=== PATIENT | male | born 1955 | race Caucasian/White ===

== ENCOUNTER → 2020-12-11 10:12 | Outpatient (CLI) | payer MEDICARE, SELFPAY ==
[2020-12-11] MEDS: COVID-19 VACC #1, MRNA(MOD) 100 MCG/0.5 ML VIAL IM (10:15)
== END ==
PROVIDERS: Visit Provider Internal Medicine
DX: Z23 Encounter for immunization (principal)
CPT/HCPCS: 0011A; 91301

== ENCOUNTER → 2021-01-08 10:11 | Outpatient (CLI) | payer MEDICARE, SELFPAY ==
[2021-01-08] MEDS: COVID-19 VACC #2, MRNA(MOD) 100 MCG/0.5 ML VIAL IM (10:19)
== END ==
PROVIDERS: Visit Provider Internal Medicine
DX: Z23 Encounter for immunization (principal)
CPT/HCPCS: 0012A; 91301

== ENCOUNTER → 2021-01-28 18:41 | Outpatient (ROUT) | payer OTHER, SELFPAY ==
[2021-01-28 19:26] LABS: Aspartate Aminotransferase 28 IU/L (17-59); BUN Creatinine Ratio 28.8 (6-22); Blood Urea Nitrogen 21 mg/dL (9-20); Carbon Dioxide 30 mmol/L (22-32); Chloride 102 mmol/L (98-107); Cholesterol 193 mg/dL (140-199); Estimated Glomerular Filt Rate > 60.0 mL/min (>60); Glucose 96 mg/dL (80-110); HDL Cholesterol 77 mg/dL (40-60); HEMOLYSIS < 15 (0-50); LDL Cholesterol Calculated 99 mg/dL (<100); Potassium 4.2 mmol/L (3.4-5.1); Sodium 136 mmol/L (137-145); Triglycerides 84 mg/dL (35-150)
[2021-01-28 19:55] LABS: Prostate Specific Antigen 1.25 ng/mL (0.10-4.00)
== END ==
PROVIDERS: Visit Provider Internal Medicine
DX: I10 Essential (primary) hypertension (principal); E78.2 Mixed hyperlipidemia; N40.0 Benign prostatic hyperplasia without lower urinary tract symptoms
CPT/HCPCS: 80048; 80061; 84153; 84450

== ENCOUNTER → 2023-03-26 10:03 | Outpatient (CLI) | payer OTHER, SELFPAY ==
[2023-03-26 11:38] LABS: Add Manual Diff / Slide Review NO; Basophils Absolute Auto 0 /uL (0-100); Basophils Percent Auto 0.7 % (0-2); Eosinophils Absolute Auto 100 /uL (0-450); Eosinophils Percent Auto 0.9 % (2-4); Hemoglobin 14.5 g/dL (13.5-17.5); Lymphocytes Absolute Auto 1600 /uL (1100-4500); Lymphocytes Percent Auto 27.4 % (25-40); Mean Corpuscular HGB Conc 34.6 % (30-36); Mean Corpuscular Hemoglobin 31.4 PG (26-34); Mean Corpuscular Volume 90.8 fL (80-100); Monocytes Absolute Auto 600 /uL (0-900); Monocytes Percent Auto 10.1 % (3-14); Neutrophils Absolute Auto 3600 /uL (1500-7000); Neutrophils Percent Auto 60.9 % (50-75); Platelet Count 248 X10^3/uL (150-400); Red Blood Cell Count 4.62 X10^6/uL (4.5-5.9); Red Cell Distribution Width 12.7 % (11.6-14.8); White Blood Cell Count 5.9 X10^3/uL (4.5-11.0)
[2023-03-26 11:51] LABS: Alanine Aminotransferase 25 IU/L (<50); Albumin 4.1 g/dL (3.5-5.0); Albumin Globulin Ratio 1.3 (1.0-2.8); Alkaline Phosphatase 54 U/L (38-126); Aspartate Aminotransferase 26 IU/L (17-59); Bilirubin Total 0.8 mg/dL (0.2-1.3); Blood Urea Nitrogen 24 mg/dL (9-20); Calcium 8.9 mg/dL (8.4-10.2); Carbon Dioxide 33 mmol/L (22-32); Chloride 104 mmol/L (98-107); Cholesterol 214 mg/dL (140-199); Estimated Glomerular Filt Rate > 60 mL/min (>60); Globulin 3.1 g/dL (1.7-4.1); Glucose 95 mg/dL (80-110); HDL Cholesterol 80 mg/dL (40-60); HEMOLYSIS < 15 (0-50); LDL Cholesterol Calculated 119 mg/dL (<100); Potassium 4.2 mmol/L (3.4-5.1); Sodium 139 mmol/L (137-145); Total Protein 7.2 g/dL (6.3-8.2); Triglycerides 77 mg/dL (35-150)
[2023-03-26 12:05] LABS: Prolactin 30.1 ng/mL (3.7-17.9)
[2023-03-26 12:19] LABS: Prostate Specific Antigen Scrn 1.31 ng/mL (0.1-4.0)
[2023-03-26 12:33] LABS: TSH w/ Reflex to FT4 0.45 uIU/mL (0.47-4.68)
[2023-03-26 13:23] LABS: Free T4, Direct Thyroxine 1.05 ng/dL (0.78-2.19)
[2023-03-28 09:36] LABS: Calcium 9.2 mg/dL (8.6-10.2); Parathyroid Hormone, Intact 49 pg/mL (15-65)
== END ==
PROVIDERS: PCP Family Medicine; Referring Provider Family Medicine; Visit Provider Family Medicine
DX: D35.2 Benign neoplasm of pituitary gland (principal); E21.3 Hyperparathyroidism, unspecified; Z12.5 Encounter for screening for malignant neoplasm of prostate; M85.80 Other specified disorders of bone density and structure, unspecified site; Z00.00 Encounter for general adult medical examination without abnormal findings
CPT/HCPCS: 36415; 80053; 80061; 82310; 83970; 84146; 84439; 84443; 85025; G0103

== ENCOUNTER → 2023-04-10 09:19 | Outpatient (CLI) | payer OTHER, SELFPAY ==
[2023-04-10 11:30] LABS: Free T4, Direct Thyroxine 0.96 ng/dL (0.78-2.19)
[2023-04-10 11:31] LABS: Prolactin 30.7 ng/mL (3.7-17.9)
[2023-04-10 11:44] LABS: Thyroid Stimulating Hormone 0.511 uIU/mL (0.47-4.68)
[2023-04-13 05:20] LABS: Calcium 8.9 mg/dL (8.6-10.2); Parathyroid Hormone, Intact 49 pg/mL (15-65)
== END ==
PROVIDERS: PCP Family Medicine; Referring Provider Family Medicine; Visit Provider Family Medicine
DX: E21.3 Hyperparathyroidism, unspecified (principal); R79.89 Other specified abnormal findings of blood chemistry
CPT/HCPCS: 36415; 82310; 83970; 84146; 84439; 84443

== ENCOUNTER → 2023-04-21 11:07 | Outpatient (CLI) | payer OTHER, SELFPAY ==
--- NOTE | 2023-04-21 11:08 | DI.MRI.S_ITS ---
PROCEDURE: MR BRAIN (PITUITARY) WWO CON INDICATIONS: Elevated prolactin level, history of prolactinoma TECHNIQUE: Noncontrast sagittal and axial FLAIR, axial gradient echo, axial diffusion and ADC through the brain. Thin-slice sagittal and coronal T1 spin echo, coronal T2 fast spin echo through the pituitary. After the administration contrast, optional dynamic coronal T1 spin echo, thin-slice coronal and sagittal T1 spin echo images through the pituitary fossa; axial and coronal and sagittal T1 spin echo with fat saturation through the brain. COMPARISON: No prior exams available FINDINGS: Image quality: Excellent. Pituitary Gland: Noncontrast pituitary is appropriate in size and signal characteristics. Normal posterior pituitary bright spot present. After contrast administration, the pituitary shows appropriate enhancement without convincing evidence of nodular defect CSF Spaces: Ventricles are normal in size and shape. Basal cisterns are patent. No extra-axial fluid collections. Brain: No intracranial bleeds or mass effects. No abnormal intracranial enhancement. Rodriguez-white matter interface is intact. Diffusion weighted images demonstrate no acute ischemic insults. Brainstem is normal. Normal intravascular flow voids are present. Skull and face: Complete left maxillary sinus opacification. Sinuses: Sinuses and mastoids are clear. IMPRESSION: 1. Unremarkable MRI of the brain and pituitary gland without MR findings suggest pituitary adenoma 2. Left maxillary mucosal sinus disease Approved by: J Carlos Lyle M.D. on 04/21/2023 at 15:39
== END ==
PROVIDERS: PCP Family Medicine; Referring Provider Family Medicine; Visit Provider Family Medicine
DX: E21.3 Hyperparathyroidism, unspecified (principal); J32.0 Chronic maxillary sinusitis; D35.2 Benign neoplasm of pituitary gland; R79.89 Other specified abnormal findings of blood chemistry
CPT/HCPCS: 70553; A9579

== ENCOUNTER → 2023-10-01 10:26 | Outpatient (CLI) | payer OTHER, SELFPAY ==
--- NOTE | 2023-10-01 10:28 | DI.RAD.S_ITS ---
Bone Density Report Name: ADRIAN PAPPAS Age: 67 Sex: Male Ethnicity: White Date of : 1955 Indication: Other specified disorders of bone density. Referring Provider: KELVIN LEON Study: Bone densitometry was performed. Exam Date: October 01, 2023 Accession number: [id number] Bone Density: Region BMD T-score Z-score Classification AP Spine(L1-L4) 1.143 0.9 1.3 Normal Femoral Neck (Left) 0.640 -1.9 -1.0 Osteopenia Total Hip (Left) 0.859 -0.7 -0.5 Normal Femoral Neck (Right) 0.607 -2.2 -1.2 Osteopenia Total Hip (Right) 0.876 -0.5 -0.4 Normal Total Hip Mean 0.868 -0.6 -0.5 Normal World Health Organization criteria for BMD impression classify patients as: Normal (T-score at or above -1.0), Osteopenia (T-score between -1.0 and -2.5), or Osteoporosis (T-score at or below -2.5). 10-year Fracture Risk: FRAX not reported because: Treated for osteoporosis Impression: The patient has low bone mass, based on the Right Femoral Neck T-score. Discussion: It is important to ask patients whether they are taking their medications and to encourage continued and appropriate compliance with their osteoporosis therapies to reduce fracture risk. It is also important to review their risk factors and encourage appropriate calcium and vitamin D intakes, exercise, fall prevention and other lifestyle measures. Follow-Up: Consider repeating this study in 2 years to reassess this patient's status, or sooner if there is some new clinical indication. Reported by: JAYMIE CHIRINOS M.D. on 10/01/2023 11:20:00 AM.
== END ==
PROVIDERS: PCP Family Medicine; Referring Provider Family Medicine; Visit Provider Family Medicine
DX: M85.89 Other specified disorders of bone density and structure, multiple sites (principal); R79.89 Other specified abnormal findings of blood chemistry; D35.2 Benign neoplasm of pituitary gland; E21.3 Hyperparathyroidism, unspecified
CPT/HCPCS: 77080

== ENCOUNTER → 2024-06-10 10:51 | Outpatient (CLI) | payer OTHER, SELFPAY ==
[2024-06-10 11:47] LABS: Add Manual Diff / Slide Review NO; Basophils Absolute Auto 0 /uL (0-100); Basophils Percent Auto 1.1 % (0-2); Eosinophils Absolute Auto 100 /uL (0-450); Eosinophils Percent Auto 1.3 % (2-4); Hematocrit 41.9 % (41-53); Hemoglobin 14.5 g/dL (13.5-17.5); Lymphocytes Absolute Auto 1600 /uL (1100-4500); Lymphocytes Percent Auto 38.3 % (25-40); Mean Corpuscular HGB Conc 34.5 % (30-36); Mean Corpuscular Volume 92.7 fL (80-100); Monocytes Absolute Auto 600 /uL (0-900); Monocytes Percent Auto 13.5 % (3-14); Neutrophils Absolute Auto 1900 /uL (1500-7000); Neutrophils Percent Auto 45.8 % (50-75); Platelet Count 247 X10^3/uL (150-400); Red Blood Cell Count 4.52 X10^6/uL (4.5-5.9); Red Cell Distribution Width 13.2 % (11.6-14.8); White Blood Cell Count 4.2 X10^3/uL (4.5-11.0)
[2024-06-10 12:21] LABS: Cholesterol 207 mg/dL (140-199); HDL Cholesterol 82 mg/dL (40-60); LDL Cholesterol Calculated 111 mg/dL (<100); Triglycerides 69 mg/dL (35-150)
[2024-06-10 12:38] LABS: Prolactin 25.3 ng/mL (3.7-17.9)
[2024-06-11 08:40] LABS: Calcium 9.8 mg/dL (8.6-10.2); Parathyroid Hormone, Intact 21 pg/mL (15-65)
== END ==
PROVIDERS: PCP Family Medicine; Referring Provider Family Medicine; Visit Provider Family Medicine
DX: Z00.00 Encounter for general adult medical examination without abnormal findings (principal); E21.3 Hyperparathyroidism, unspecified; R79.89 Other specified abnormal findings of blood chemistry; Z12.5 Encounter for screening for malignant neoplasm of prostate; D35.2 Benign neoplasm of pituitary gland
CPT/HCPCS: 36415; 80061; 82310; 83970; 84146; 85025; G0103

== ENCOUNTER → 2025-10-03 09:37 | Outpatient (CLI) | payer OTHER, SELFPAY ==
--- OUTSIDE RECORDS SUMMARY | 2025-10-02 08:52 | XMS_ITS | Encounter Summary ---
Author Organization [facility] Address [address] [place] [address] Care Team Providers Care Production Line Technician Name Role Phone Star Cervantes DO Primary Care Provider [phone] Reason for Referral * Diagnostic Imaging (Routine) - Closed Specialty Diagnoses / Procedures Referred By Kathy espinoza Referred To Contact Radiology Diagnoses Right shoulder pain, unspecified chronicity Procedures XR SHOULDER 2+ VIEWS RIGHT Ortiz Edmonds MD [address] [address] Phone: tel: fax: Referral ID Status Reason Start Date Expiration Date V isits Requested Visits Authorized [id number] Closed Specialty Services Required 09/26/2025 09/21/2026 1 1 Reason for Visit * Diagnostic Imaging (Routine) - Closed Specialty Diagnoses / Procedures Referred By Kathy espinoza Referred To Contact Radiology Diagnoses Right shoulder pain, unspecified chronicity Procedures XR SHOULDER 2+ VIEWS RIGHT Ortiz Edmonds MD [address] [address] Phone: tel: fax: Referral ID Status Reason Start Date Expiration Date V isits Requested Visits Authorized [id number] Closed Specialty Services Required 09/26/2025 09/21/2026 1 1 Encounter Details Date Type Department Care Team (Latest Contact Info) Description 10/02/2025 8:52 AM PST - 10/02/2025 11:59 PM PST Hospital Encounter [facility] Diagnostic Imaging [address] [phone] Ortiz Edmonds MD [address] [phone] Right shoulder pain, unspecified chronicity Discharge Disposition: Home/Self Care Social History Tobacco Use Types Packs/Day Years Used Date Smoking Tobacco: Never Smokeless Tobacco: Never Comments:never used Alcohol Use Standard Drinks/Week Comments Yes 1 (1 standard drink = 0.6 oz pur e alcohol) Sex and Gender Information Value Date Recorded Sex Assigned at Not on file Legal Sex Male 3:53 PM PDT Gender Identity Not on file Sexual Orientation Not on file documented as of this encounter Medications at Time of Discharge calcium carbonate (CALCIUM 500 ORAL) Take by mouth cholecalciferol, vitamin D3, 75 mcg (3,000 unit) tablet Take by mouth naproxen (NAPROSYN) 250 mg tablet Take 1 tablet (250 mg total) by mouth sildenafiL (VIAGRA) 100 mg tablet Take 0.5-1 tablets (50-100 mg total) by mouth documented as of this encounter Plan of Treatment Not on file documented as of this encounter Procedures Procedure Name Priority Date/Time Associated Diagnosis Comments XR SHOULDER 2+ VIEWS RIGHT Routine 10/02/2025 9:07 AM [facility] Right shoulder pain, unspecified chronicity documented in this encounter Results * XR SHOULDER 2+ VIEWS RIGHT (10/02/2025 9:07 AM PST) Anatomical Region Laterality Modality Upper Extremities, Shoulder Right Radi ographic Imaging 10/02/2025 12:0 1 PM PST Narrative 10/02/2025 8:41 [place]. [address] PATIENT NAME: IGOR PAPPAS : 1955 GENDER: Keaton EXAM DATE: 10/02/2025 8:59 ORDERED FROM: [facility] [place] ORDERING PHYSICIAN: ORTIZ EDMONDS CC: -- - - - CONTRAST: READING STATION ID: [id number] mGy: PROCEDURE: XR SHOULDER 2+ VIEWS RIGHT INDICATIONS: pain TECHNIQUE: 3 views of the shoulder were acquired. COMPARISON: [facility] [place], CR, XR SHOULDER 2+ VIEWS LEFT, 11/17/2023, 14:32. FINDINGS: Bones: No fractures or dislocations. No suspicious bony lesions. Visualized ribs appear intact. Moderate acromioclavicular and mild glenohumeral joint space narrowing with periarticular osteophyte formation. Soft tissues: No suspicious soft tissue calcifications. The visualized lung is within normal limits. IMPRESSION: No acute bony abnormality. Moderate acromioclavicular mild glenohumeral joint degeneration. Reviewed by: Jeyson Lino [facility] Interpreted: Ellen Valentin MD on 10/02/2025 at 11:54 Transcribed by: JAYCEE on 10/02/2025 at 12:05 Approved by: Ellen Valentin M.D. on 10/02/2025 at 20:41 Procedure Note Ellen Valentin MD - 10/02/2025 [place]. [address] PATIENT NAME: IGOR PAPPAS : 1955 GENDER: Keaton EXAM DATE: 10/02/2025 8:59 [place] [facility] ORDERING PHYSICIAN: ORTIZ EDMONDS CC: -- - - - CONTRAST: READING STATION ID: [id number] mGy: PROCEDURE: XR SHOULDER 2+ VIEWS RIGHT INDICATIONS: pain TECHNIQUE: 3 views of the shoulder were acquired. COMPARISON: [facility] [place], CR, XR SHOULDER 2+VIEWS LEFT, 11/17/2023, 14:32. FINDINGS: Bones: No fractures or dislocations. No suspicious bony lesions.Visualized ribs appear intact. Moderate acromioclavicular and mildglenohumeral joint space narrowing with periarticular osteophyteformation. Soft tissues: No suspicious soft tissue calcifications. The visualizedlung is within normal limits. IMPRESSION: No acute bony abnormality. Moderate acromioclavicular mild glenohumeral joint degeneration. Reviewed by: Jeyson Lino RR Interpreted: Ellen Valentin MD on 10/02/2025t 11:54 Transcribed by: JAYCEE on 10/02/2025 at 12:05 Approved by: Ellen Valentin M.D. on 10/02/2025 at 20:41 Ortiz Edmonds MD [facility] XR PROCEDURES Final Result documented in this encounter Visit Diagnoses Diagnosis Right shoulder pain, unspecified chronicity documented in this encounter Care Teams Production Line Technician Relationship Specialty Start Date End Date Star Cervantes DO [address] [place] [address], [address] [place] [address] PCP - General Patient Appointment Coordinator 09/03/25 documented as of this encounter
--- OUTSIDE RECORDS SUMMARY | 2025-10-02 09:30 | XMS_ITS | Encounter Summary ---
Author Organization [facility] Address [address] [place] [address] Care Team Providers Care Service Aide Name Role Phone Star Cervantes DO Primary Care Provider [phone] Reason for Referral * MRI/CAT/PET Scan (Routine) - Pending Review Specialty Diagnoses / Procedures Referred By Kathy t Referred To Contact Radiology Diagnoses Right shoulder pain, unspecified chronicity Procedures MR SHOULDER RIGHT WITHOUT CONTRAST Ortiz Edmonds MD [address] [place] [phone] Phone: tel: fax: Referral ID Status Reason Start Date Expiration Date Visits Requested Visits Authorized [id number] Pending Review Specialty Services Required 5 09/27/2026 1 1 * Physical Therapy (Routine) - Authorized Specialty Diagnoses / Procedures Referred By Kathy espinoza Referred To Contact Physical Therapy Diagnoses Right shoulder pain, unspecified chronicity Ortiz Edmonds MD [address] [place] [phone] Phone: tel: fax: [facility] [address] [place] [phone] Phone: tel: fax: Referral ID Status Reason Start Date Expiration Date Visits Requested Visits Authorized [id number] Authorized Specialty Services Required 5 01/03/2026 36 9 Scheduling Instructions Begin physical therapy as ordered for range of motion, strengthening, and stabilization * Diagnostic Imaging (Routine) - Closed Specialty Diagnoses / Procedures Referred By Kathy espinoza Referred To Contact Radiology Diagnoses Right shoulder pain, unspecified chronicity Procedures XR SHOULDER 2+ VIEWS RIGHT Ortiz Edmonds MD [address] [place] [phone] Phone: tel: fax: Referral ID Status Reason Start Date Expiration Date V isits Requested Visits Authorized [id number] Closed Specialty Services Required 09/26/2025 09/21/2026 1 1 Reason for Visit * Reason Comments Pain Encounter Details Date Type Department Care Team (Late st Contact Info) Description 10/02/2025 9:30 AM PST Office Visit [facility] [address] [phone] Ortiz Edmonds MD [address] [place] [phone] Right shoulder pain, unspecified chronicity (Primary Dx) Social History Tobacco Use Types Packs/Day Years [...] on file documented as of this encounter Progress Notes * Juan Mcdonald MA - 10/02/2025 9:30 AM PST ou have an injury to the Right shoulder impingement syndrome, acromioclavicular joint arthritis, r/o partial versus full thickness rotator cuff tear. We have discussed surgical versus nonsurgical treatment options. At this time, you will take anti-inflammatories for pain, and modify activities as instructed. You may use ice and/or heat as needed for comfort. Please refrain from any overhead activities including any vigorous pushing and/or pulling movements. Please keep your elbow close to your body when performing activities with your arm. Begin physical therapy as ordered for range of motion, strengthening, and stabilization. MRI without contrast of the right shoulder has been ordered. Return to clinic after MRI for further evaluationand discussion. Please feel free to call with any further questions, comments, and/or concerns. We have ordered a diagnostic study (such as an MRI, CT or Ultrasound) to further evaluate you and your symptoms. [facility] Diagnostic Department will call you once this is authorized with your insurance to get you scheduled. If you have questions about the authorization of your study, you can reach out to our Comic Artist at [phone]. Once you get your appointment for the MRI/CT or Ultrasound, please call our office [phone] to make a follow up appointment to review these results. We will work our best to get you scheduled in timely manner to review the imaging. * Ortiz Edmonds MD - 10/02/2025 9:30 AM PST Subjective Patient ID: Igor Pappas is a 69 y.o. male that presents today for had concerns including Pain of the Right Shoulder.. Referred by: Star Cervantes DO Igor Pappas is a 69 y.o. year old male right hand dominant patient who presents to our office for orthopedic evaluation of their ongoing symptoms of the right shoulder. The patient states that their pain is a sharp in nature and mild/moderate in severity localized to the lateral aspect of the shoulder without radiation. This has been progressing over the past year. Recently went fly fishing the last couple of months which exacerbated it. Moreover, the pain is exacerbated by activities, especially with overhead activities. Rest seems to improve the symptoms . Patient reports no popping/clicking/grinding, no stiffness, some weakness, no swelling, no numbness, no tingling, does wake the patient up at night. Previous treatment has included: months of hep/ physical therapy, no injections.Work/hobbies/sports include: goes fly fishing, assistant research scientist environmental- retired Past Medical History: Diagnosis Date Bunion 2010 Cataract 2016 Dizziness 11/22/2022 Dupuytren's contracture 2022 Hyperparathyroidism surgery 2017, now osteopenia Hypopituitarism elevated prolactin, 2017 Osteoporosis 2016 Tear of meniscus of knee 2016 Past Surgical History: Procedure Laterality Date COLONOSCOPY 2015 EYE SURGERY cataract 2016 FOOT SURGERY 2009 PARATHYROID GLAND SURGERY 2016 OR COLONOSCOPY W/BIOPSY SINGLE/MULTIPLE N/A 09/03/2025 Procedure: COLONOSCOPY; Surgeon: Prasad Toribio MD; Location: [facility]; Service: Gastroenterology OR COLSC FLX W/RMVL OF TUMOR POLYP LESION SNARE TQ N/A 09/03/2025 Procedure: FLEXIBLE COLONOSCOPY PROXIMAL TO SPLENIC FLEXURE WITH REMOVAL OF TUMOR USING SNARE; Surgeon: Prasad Toribio MD; Location: [facility]; Service: Gastroenterology Family History Problem Relation Age of Onset Hypertension Father Social History Socioeconomic History Marital status: Tobacco Use Smoking status: Never Smokeless tobacco: Never Tobacco comments: never used Vaping Use Vaping status: Never Used Substance and Sexual Activity Alcohol use: Yes Alcohol/week: 1.0 standard drink of alcohol Types: 1 Glasses of wine per week Drug use: Never Sexual activity: Yes Partners: Female control/protection: Pill No Known Allergies Current Medication List Sig calcium carbonate (CALCIUM 500 ORAL) Take by mouth cholecalciferol, vitamin D3, 75 mcg (3,000 unit) tablet Take by mouth naproxen (NAPROSYN) 250 mg tablet Take 1 tablet (250 mg total) by mouth sildenafiL (VIAGRA) 100 mg tablet Take 0.5-1 tablets (50-100 mg total) by mouth Review of Systems Objective There were no vitals taken for this visit. Physical Exam CONST: WD,WN, NAD, A+OX3 OCULAR: EOMI, no conjunctivitis/icterus ENT: no deformities, scars or lesions CARDIAC: Pulse is regular. No cyanosis,clubbing,edema RESP: regular,unlabored MSK: normal light touch median, ulnar, radial, lateral antebrachial, axillary nerve distribution. Intact AIN, PIN, u, r, ax motor. 2+ r pulse Right SHOULDER - scars, - swelling, - atrophy or asymmetry. TTP anterolateral ROM R/ L Strength/Pain 150/170 FF 4+/5 /+ 130/150 ABD 4+/5 /+ 30/50 ER 5-/5 / + L5/L1 IR 5/5 / - +painful arc, +pain with passive stretch, - pseudoparalysis, - crepitus Signs Neer's: + Hawkin's: + Belly- Off: - O'Briens: + Apprehension: - Suppression: - Jerk: - Drawer: - Sulcus: - Speed's:+ Yergason: + Scapular Winging: - Crossbody Adduction: ++ Patient Active Problem List Diagnosis Hyperprolactinemia Osteoporosis Primary hyperparathyroidism Vitamin D deficiency Dupuytren's contracture Special screening for malignant neoplasms, colon Diagnostics: 4 view xray of the shoulder demonstrates no acute fracture or fracture, type 2 b acromion, moderateAC joint arthritis Assessment/Plan Diagnoses and all orders for this visit: Right shoulder pain, unspecified chronicity - XR SHOULDER 2+ VIEWS RIGHT; Future You have an injury to the Right shoulder impingement syndrome, acromioclavicular joint arthritis, r/o partial versus full thickness rotator cuff tear. We have discussed surgical versus nonsurgical treatment options. At this time, you will take anti-inflammatories for pain, and modify activities as instructed. You may use ice and/or heat as needed for comfort. Please refrain from any overhead activities including any vigorous pushing and/or pulling movements. Please keep your elbow close to yourbody when performing activities with your arm. Begin physical therapy as ordered for range of motion, strengthening, and stabilization. MRI without contrast of the right shoulder has been ordered. Return to clinic after MRI for further evaluationand discussion. Please feel free to call with any further questions, comments, and/or concerns. Portions of today's documentation have been created with the assistance of voice recognition software. Therefore, it may contain anomalous punctuation, anomalous independent misrecognitions, word substitutions, insertions or omissions. Occasional wrong-word or sound- alike substitutions may also occur, all due to the inherent limitations of voice recognition software. Attempts to correct the above have been made by Ortiz Edmonds MD, but it is recommended that the chart be read carefully to recognize, using context, where the substitutions may have occurred. Electronically signed by Ortiz Edmonds MD 10/02/2025 9:12 AM documented in this encounter Miscellaneous Notes * Addendum Note - Juan Mcdonald MA - 10/02/2025 9:30 AM PSTAddended by: JUAN MCDONALD on: 10/02/2025 09:28 AM Modules accepted: Orders * Addendum Note - Juan Mcdonald MA - 10/02/2025 9:30 AM PSTAddended by: JUAN MCDONALD on: 10/02/2025 09:34 AM Modules accepted: Orders * Addendum Note - Ortiz Edmonds MD - 10/02/2025 9:30 AM PSTAddended by: ORTIZ EDMONDS on: 10/02/2025 09:35 AM Modules accepted: Orders documented in this encounter Plan of Treatment Scheduled Orders Name Type Priority Associated Diagnoses Orde r Schedule MR SHOULDER RIGHT WITHOUT CONTRAST Imaging Routine Right shoulder pain, unspecified chronicity Expected: 10/02/2025, Expires: 01/02/2027 Scheduled Referrals Name Type Priority Associated Diagnoses Orde r Schedule XTRNL Referral to Physical Therapy Outpatient Referral Routine Right shoulder pain, unspecified chronicity 1 Occurrences starting 10/02/2025 until 10/02/2026 documented as of this encounter Results * XR SHOULDER 2+ VIEWS RIGHT (10/02/2025 9:07 AM PST) Anatomical Region Laterality Modality Upper Extremities, Shoulder Right Radi ographic Imaging 10/02/2025 12:0 1 PM PST Narrative 10/02/2025 8:41 [place]. [address] PATIENT NAME: IGOR PAPPAS : 1955 GENDER: Keaton EXAM DATE: 10/02/2025 8:59 [facility] ORDERING PHYSICIAN: ORTIZ EDMONDS CC: -- - - - CONTRAST: READING STATION ID: [id number] mGy: PROCEDURE: XR SHOULDER 2+ VIEWS RIGHT INDICATIONS: pain TECHNIQUE: 3 views of the shoulder were acquired. COMPARISON: [facility] [place], CR, XR SHOULDER 2+ VIEWS LEFT, 11/17/2023, [...] Lino RR Interpreted: Ellen Valentin MD on 10/02/2025 at 11:54 Transcribed by: JAYCEE on 10/02/2025 at 12:05 Approved by: Ellen Valentin M.D. on 10/02/2025 at 20:41 Procedure Note Ellen Valentin MD - 10/02/2025 [place]. [address] PATIENT NAME: IGOR PAPPAS : 1955 GENDER: Keaton EXAM DATE: 10/02/2025 8:59 ORDERED FROM: [facility] [place] ORDERING PHYSICIAN: ORTIZ EDMONDS CC: -- - - - CONTRAST: READING STATION ID: [id number] mGy: PROCEDURE: XR SHOULDER 2+ VIEWS RIGHT INDICATIONS: pain TECHNIQUE: 3 views of the shoulder were acquired. COMPARISON: [facility] [place], CR, XR SHOULDER 2+VIEWS LEFT, 11/17/2023, 14:32. FINDINGS: Bones: No fractures or dislocations. No suspicious bony lesions.Visualized ribs appear intact. Moderate acromioclavicular and mildglenohumeral joint space narrowing with periarticular osteophyteformation. Soft tissues: No suspicious soft tissue calcifications. The visualizedlung is within normal limits. IMPRESSION: No acute bony abnormality. Moderate acromioclavicular mild glenohumeral joint degeneration. Reviewed by: Jeyson BOYD Interpreted: Ellen Valentin MD on 10/02/2025t 11:54 Transcribed by: JAYCEE on 10/02/2025 at 12:05 Approved by: Ellen Valentin M.D. on 10/02/2025 at 20:41 Ortiz Edmonds MD [facility] XR PROCEDURES Final Result documented in this encounter Visit Diagnoses Diagnosis Right shoulder pain, unspecified chronicity- Primary Right shoulder pain, unspecified chronicity documented in this encounter Care Teams Service Aide Relationship Specialty Start Date End Date Star Cervantes DO [facility] [address] [place] [address], [address] [place] [address] PCP - General Back Maker 09/03/25 documented as of this encounter
--- NOTE | 2025-10-03 09:40 | DI.RAD.S_ITS ---
PROCEDURE: XR DEXA AXIAL SKELETON INDICATIONS: Osteopenia COMPARISON: [facility], , XR DEXA AXIAL SKELETON, 10/01/2023, 11:01. FINDINGS: Lumbar Spine: Bone mineral density 1.140 g/cm2, T score 0.8, compared to 0.9. Left Femoral Neck: Bone mineral density 0.616 g/cm2, T score -2.1, compared to -1.9. Left Hip: Bone mineral density 0.868 g/cm2, T score -0.6, compared to -0.7. Fracture Risk Calculation (when applicable): 10-year fracture risk of a major osteoporotic fracture 8.8 percent and of a hip fracture 2.8 percent. (T score greater or equal to -1.0 to: NORMAL) (T score from -1.1 to -2.4: OSTEOPENIA) (T score less than or equal to -2.5: OSTEOPOROSIS) IMPRESSION: Mild progression of moderate osteopenia in the left femoral neck. Follow-up guidelines as follows: Osteoporosis: Consider a repeat DEXA and Vertebral Fracture Assessment (VFA) exam in 2 years or sooner if medically necessary, to reassess this patient's status. Osteopenia: Consider a repeat DEXA in 2-3 years to reassess this patient's status, or if there is a new clinical indication. Normal: Consider a repeat DEXA in 5 years or sooner, or if there is a new clinical indication. All treatment decisions require clinical judgment and consideration of individual patient factors, including patient preferences, comorbidities, previous drug use, risk factors not captured in the FRAX model (e.g., frailty, falls, vitamin D deficiency, increased bone turnover, interval significant decline in bone density ) and possible under- or over-estimation of fracture risk by FRAX. In addition, the NOF Guide recommends that FDA-approved medical therapies be considered in postmenopausal women and men age >= 50 years with a: * Hip or vertebral (clinical or morphometric) fracture * T-score of <=-2.5 at the spine or hip * Ten-year fracture probability by FRAX of >= 3% for hip fracture or >=20% for major osteoporotic fracture. Dictated by: Ellen Valentin M.D. on 10/03/2025 at 16:51 Approved by: Ellen Valentin M.D. on 10/03/2025 at 16:52
--- OUTSIDE RECORDS SUMMARY | 2025-10-05 14:30 | XMS_ITS | Clinical Summary ---
Author Organization [facility] Address [address] [place] [address] Care Team Providers Care Diversified Crops Supervisor Name Role Phone Star Cervantes DO Primary Care Provider [phone] Allergies No known active allergies Medications cholecalciferol , vitamin D3, 75 mcg (3,000 unit) tablet Take by mouth Active naproxen (NAPROSYN) 250 mg tablet Take 1 tablet (250 mg total) by mouth Active sildenafiL (VIAGRA) 100 mg tablet Take 0.5-1 tablets (50-100 mg total) by mouth Active calcium carbonate (CALCIUM 500 ORAL) Take by mouth Active Active Problems Problem Noted Date Diagnosed Date Special screening for malignant neoplasms, colon 07/12/2025 Dupuytren's contracture 06/07/2025 Hyperprolactinemia 08/22/2018 Osteoporosis 08/22/2018 Primary hyperparathyroidism 08/22/2018 Vitamin D deficiency 08/22/2018 Encounters Date Type Department Care Team Description 10/02/2025 9:30 AM [facility] [place] Office Visit [facility] Orthopedics and Sports Medicine [address] [phone] Ortiz Edmonds MD Right shoulder pain, unspecified chronicity (Primary Dx) 10/02/2025 8:52 AM PST - 10/02/2025 11:59 PM PST Hospital Encounter [facility] Diagnostic Imaging [address] [phone] Ortiz Edmonds MD Right shoulder pain, unspecified chronicity Discharge Disposition: Home/Self Care 09/26/2025 Abstract [facility] Orthopedics and Sports Medicine [address] [phone] Ortiz Edmonds MD 09/25/2025 Abstract [facility] Orthopedics and Sports Medicine [address] [phone] Ortiz Edmonds MD 09/12/2025 Results Follow-Up [facility] Gastroenterology [address] [phone] Marie Toribio MD Surgical Pathology 09/03/2025 9:04 AM PDT Anesthesia Event [facility] Endoscopy [address] [phone] Caleb Sal MD 09/03/2025 9:00 AM PDT - 09/03/2025 9:30 AM PDT Surgery [facility] Endoscopy [address] [phone] Marie Toribio MD COLONOSCOPY [[id number] (CPT )] 09/03/2025 8:01 AM PDT - 09/03/2025 9:43 AM PDT Hospital Encounter [facility] Endoscopy [address] [phone] Marie Toribio MD Special screening for malignant neoplasms, colon Discharge Disposition: Home/Self Care 08/29/2025 Travel 07/12/2025 Orders Only [facility] Gastroenterology [address] [phone] Marie Toribio MD Special screening for malignant neoplasms, colon (Primary Dx) 07/09/2025 Telephone [facility] Gastroenterology [address] [phone] Pcp, None Selected Colon Cancer Screening from Last 3 Months Family History Medical History Relation Comments Hypertension Father Relation Status Comments Father Alive Social History Tobacco Use Types Packs/Day Years Used Date Smoking Tobacco: Never Smokeless Tobacco: Never Tobacco Cessation:Counseling Given: Not Answered Comments:never used Alcohol Use Standard Drinks/Week Comments Yes 1 (1 standard drink = 0.6 oz pur e alcohol) Sex and Gender Information Value Date Recorded Sex Assigned at Not on file Legal Sex Male 3:53 PM PDT Gender Identity Not on file Sexual Orientation Not on file Last Filed Vital Signs Vital Sign Reading Time Taken Comments Blood Pressure 107/66 09/03/2025 9:33 AM PDT Pulse 63 09/03/2025 9:33 AM PDT Temperature 36.3 C (97.3 F) 09/03/2025 9:33 AM PDT Respiratory Rate 20 09/03/2025 9:33 AM PDT Oxygen Saturation 97% 09/03/2025 9:33 AM PDT Inhaled Oxygen Concentration - - Weight 68.2 kg (150 lb 5.7 oz) 09/03/2025 8:18 A M PDT Height 165.1 cm (5' 5) 09/03/2025 8:18 AM PDT Body Mass Index 25.02 09/03/2025 8:18 AM PDT Plan of Treatment Health Maintenance Due Date Last Done Comments Bone Density Scan 1955 Medicare Annual Wellness (AWV) 1955 PSA Screening Discussion 1955 Depression Screening (PHQ-2) 1966 Colorectal Cancer Screening (FOBT) 1999 Colorectal Cancer Screening (Fecal DNA) 1999 Fall Risk Screening 2019 COVID-19 Vaccine ( season) 2026 08/08/2025, 08/10/2024, 09/27/2023, Additional history exists RSV Patients Over 60 years OR qualifying ( Patients) (1 - 1-dose 75+ series) 2029 DTaP,Tdap,and Td Vaccines (3 - Td or Tdap) 05/16/2031 05/16/2021, 11/25/2009 Colorectal Cancer Screening (Colonoscopy) 09/03/2032 09/03/2025, 09/03/2025 Colorectal Cancer Screening Combined 09/03/2032 Hepatitis A Vaccines Aged Out 07/26/2009 No long er eligible based on patient's age to complete this topic Varicella Vaccines Discontinued 05/15/2015 Zoster Vaccines Completed 12/02/2020, 09/15, 05/15/2015 HM Pneumococcal Adult 50+ Completed 01/27/2022, HM Pneumococcal Combined Age 0-49 Discontinued 01/27/2022, 08/27/2020 Influenza Vaccine Completed 08/08/2025, , 09/06/2023, Additional history exists HPV Vaccines Aged Out No longer eligi ble based on patient's age to complete this topic Hepatitis B Vaccines Aged Out No long er eligible based on patient's age to complete this topic IPV Vaccines Aged Out No longer eligi ble based on patient's age to complete this topic MMR Vaccines Aged Out No longer eligi ble based on patient's age to complete this topic Procedures Procedure Name Priority Date/Time Associated Diagnosis Comments XR SHOULDER 2+ VIEWS RIGHT Routine 10/02/2025 9:07 AM PST Right shoulder pain, unspecified chronicity SURGICAL PATHOLOGY Routine 09/03/2025 9: 13 AM PDT Special screening for malignant neoplasms, colon MS COLSC FLX W/RMVL OF TUMOR POLYP LESION SNARE TQ 09/03/2025 9:01 AM PDT Special screening for malignant neoplasms, colon MS COLONOSCOPY W/BIOPSY SINGLE/MULTIPLE 09/03/2025 9:01 AM PDT Special screening for malignant neoplasms, colon from Last 3 Months Results * XR SHOULDER 2+ VIEWS RIGHT (10/02/2025 9:07 AM PST) Anatomical Region Laterality Modality Upper Extremities, Shoulder Right Radi ographic Imaging 10/02/2025 12:0 1 PM PST Narrative 10/02/2025 8:41 [place]. [address] PATIENT NAME: ADRIAN PAPPAS : 1955 GENDER: Keaton EXAM DATE: 10/02/2025 8:59 [facility] ORDER[facility] PHYSICIAN: ORTIZ EDMONDS CC: -- - - - CONTRAST: READING STATION ID: [id number] mGy: PROCEDURE: XR SHOULDER 2+ VIEWS RIGHT INDICATIONS: pain TECHNIQUE: 3 views of the shoulder were acquired. COMPARISON: [facility] [place], CR, XR SHOULDER 2+ VIEWS LEFT, 11/17/2023, 14:32. FINDINGS: Bones: No fractures or dislocations. No suspicious bony lesions. Visualized ribs appear intact. Moderate acromioclavicular and mild glenohumeral joint space narrowing with periarticular osteophyte formation. Soft tissues: No suspicious soft tissue calcifications. The visualized lung is within normal limits. IMPRESSION: No acute bony abnormality. Moderate acromioclavicular mild glenohumeral joint degeneration. Reviewed by: Jeyson Lino [facility] Interpreted: Ellen Valentin MD on 10/02/2025 at 11:54 Transcribed by: JAYCEE on 10/02/2025 at 12:05 Approved by: Ellen Valentin M.D. on 10/02/2025 at 20:41 Procedure Note Ellen Valentin MD - 10/02/2025 [place]. [address] PATIENT NAME: ADRIAN PAPPAS : 1955 GENDER: Keaton EXAM DATE: 10/02/2025 8:59 ORDERED FROM: [facility] ORDERING PHYSICIAN: ORTIZ EDMONDS CC: -- - - - CONTRAST: READING STATION ID: [id number] mGy: PROCEDURE: XR SHOULDER 2+ VIEWS RIGHT INDICATIONS: pain TECHNIQUE: 3 views of the shoulder were acquired. COMPARISON: [facility] [place], CR, XR SHOULDER 2+VIEWS LEFT, 11/17/2023, 14:32. FINDINGS: Bones: No fractures or dislocations. No suspicious bony lesions.Visualized ribs appear intact. Moderate acromioclavicular and mildglenohumeral joint space narrowing with periarticular osteophyteformation. Soft tissues: No suspicious soft tissue calcifications. The visualizedlung is within normal limits. IMPRESSION: No acute bony abnormality. Moderate acromioclavicular mild glenohumeral joint degeneration. Reviewed by: Jeyson Lino RRA Interpreted: Ellen Valentin MD on 10/02/2025t 11:54 Transcribed by: JAYCEE on 10/02/2025 at 12:05 Approved by: Ellen Valentin M.D. on 10/02/2025 at 20:41 us Ortiz Edmonds MD RIS [facility] XR PROCEDURES Final Result * Surgical Pathology (09/03/2025 9:13 AM PDT) Pathology Final Diagnosis SEE DETAILS 09/04/2025 4:35 PM PDT [facility] Comment: Patient: ADRIAN PAPPAS Case: [id number] Result ID: [id number] Ordering Provider: MARIE TORIBIO M.D. Collected Date: 09/03/25 Clinical History: Screening. FINAL DIAGNOSIS 1. ASCENDING COLON, POLYP, POLYPECTOMY: Tubular adenoma, negative for high-grade dysplasia. 2. TRANSVERSE COLON, POLYP, POLYPECTOMY: Hyperplastic polyp. 3. SIGMOIDCOLON, POLYP, POLYPECTOMY: Hyperplastic polyp. Electronically signed by Jeanette Lovell MD PhD Pathologist 09/04/2025 16:35 GROSS DESCRIPTION: 1. Received in formalin are three containers all labeled Adrian Pappas. Designated large intestine, right/ascending colon is one tissue fragment measuring 0.8 cm. Entirely submitted in cassette 1A. 2. Designated large intestine, transverse colon are two tissue fragments measuring up to 0.8 cm. Entirely submitted in cassette 2A. 3. Designated large intestine, sigmoid colon is one tissue fragment measuring 0.7 cm. Entirely submitted in cassette 3A. (EBL/bk) Technical component performed at [facility], [address] [place] [address], CLIA: [id number]. MICROSCOPIC DESCRIPTION 1-3. In compliance with [facility] regulations, the pathologist s signature on this report indicates that the case has been personally reviewed by the pathologist. Microscopic examination was used to arrive at the diagnosis unless indicated otherwise. (BELLAK/kk) [facility] handbag framer [facility] [address] [place] [address] CLIA: [id number] End of Report Polyp Ascending colon structure / Unknown 09/03/2025 9:13 AM PDT 09/03/2025 9:19 AM PDT Tissue specimen (specimen) Transverse colon structure / Unknown 09/03/2025 9:14 AM PDT Specimen from mass lesion (specimen) Sigmoid colon structure / Unknown 09/03/2025 9:18 AM PDT Marie Toribio MD LAB PATHOLOGY/CYTOLOGY ORDERABLE S Final Result [facility] [address] [facility], [address] [place] [address], from Last 3 Months Insurance [employer] MED[employer]AN Advance Directives * Full Code (Latest Code Status on File) Date Activated Date Inactivated Comments 09/03/2025 8:14 AM 09/03/2025 11:43 AM Question Answer Comments Discussed the code status with patient and/or fa mike: Yes Care Teams Diversified Crops Supervisor Relationship Specialty Start Date End Date Star Cervantes DO [address] [place] [address], [address] [place] [address] PCP - General Document Restorer 09/03/25
--- OUTSIDE RECORDS SUMMARY | 2025-10-05 14:31 | XMS_ITS | Encounter Summary ---
Author Organization [facility] Address [address] [place] [address] Care Team Providers Care Polygraph Technician Name Role Phone Star Cervantes DO Primary Care Provider [phone] Encounter Details Date Type Department Care Team (Late st Contact Info) Description 07/24/2023 Abstract [facility] [address] [place] [phone] Pj Hawley DO [address] [place] [address] Social History Tobacco Use Types Packs/Day Years [...] on file documented as of this encounter Plan of Treatment Not on file documented as of this encounter Visit Diagnoses Not on filedocumented in this encounter Care Teams Polygraph Technician Relationship Specialty Start Date End Date Star Cervantes DO [address] [place] [address] PCP - General Manufacturing Quality Manager 09/03/25 documented as of this encounter
--- OUTSIDE RECORDS SUMMARY | 2025-10-05 14:31 | XMS_ITS | Encounter Summary ---
Author Organization [facility] Address [address] [place] [address] Care Team Providers Care Adjusto Writer Operator Name Role Phone Star Cervantes DO Primary Care Provider [phone] Encounter Details Date Type Department Care Team (Late st Contact Info) Description 12/26/2020 Abstract [facility] Podiatry [place] [address] [place] [address] Diana Zhang, DPM [address] [phone] Social History Tobacco Use Types Packs/Day Years Used Date Smoking Tobacco: Never Smokeless Tobacco: Never Sex and Gender Information Value Date Recorded Sex Assigned at Not on file Legal Sex Male 3:53 PM PDT Gender Identity Not on file Sexual Orientation Not on file documented as of this encounter Plan of Treatment Not on file documented as of this encounter Visit Diagnoses Not on filedocumented in this encounter Care Teams Adjusto Writer Operator Relationship Specialty Start Date End Date Star Cervnates DO [address] , [address] [place], [place] [id number] PCP - General Roller Pneumatic 09/03/25 documented as of this encounter
--- OUTSIDE RECORDS SUMMARY | 2025-10-05 14:31 | XMS_ITS | Encounter Summary ---
Author Organization [facility] Address [address] [place] [address] Care Team Providers Care Pediatric Medical Assistant Name Role Phone Star Cervantes DO Primary Care Provider [phone] Reason for Visit * Reason Onset Date Comments Left leg swelling 05/21/2021 Encounter Details Date Type Department Care Team (Late st Contact Info) Description 05/21/2021 Telephone [facility] Podiat[facility] [place] [address] [place] [address] Diana Zhang DPM [address] [phone] Left leg swelling Social History Tobacco Use Types Packs/Day Years Used Date Smoking Tobacco: Never Smokeless Tobacco: Never Sex and Gender Information Value Date Recorded Sex Assigned at Not on file Legal Sex Male 3:53 PM PDT Gender Identity Not on file Sexual Orientation Not on file documented as of this encounter Functional Status documented as of this encounter Miscellaneous Notes * Telephone Encounter - Hailee Smith - 05/21/2021 4:22 PM PDT LM for patient of Dr Zhang instructions. * Telephone Encounter - Diana Zhang DPM - 05/21/2021 2:10 PM PDT If the swelling was sudden or without injury, I would suggest follow up with PCP at his convenience, then schedule with us afterwards. * Telephone Encounter - Hailee Smith - 05/21/2021 1:48 PM PDT Made contact with patient offered him Dr Leatha suarez in [place] today at end of day. Patient declined stated he has two new puppies and can't leave. Please advise. * Telephone Encounter - Diana Zhang DPM - 05/21/2021 12:34 PM PDT I can see him today at the end of my schedule in [place]. * Telephone Encounter - Maine Goldberg - 05/21/2021 10:56 AM PDT Patient is calling with left leg swelling and pain, just below the chin. Patient had a ultrasound at [facility], for a blood clot on May 16. Patient has been in pain since May 15. Patient would like toknow if he should be seen in ortho or if he should come in to Podiatry. Please advise. Patient can be reached at [phone] ok to leave a message. documented in this encounter Plan of Treatment Not on file documented as of this encounter Visit Diagnoses Not on filedocumented in this encounter Care Teams Pediatric Medical Assistant Relationship Specialty Start Date End Date Star Cervantes DO [address] , [address] [place] [address] PCP - General Data Processing Auditor 09/03/25 documented as of this encounter
--- OUTSIDE RECORDS SUMMARY | 2025-10-05 14:31 | XMS_ITS | Encounter Summary ---
Author Organization [facility] Address [address] [place] [address] Care Team Providers Care Cranberry Bog Supervisor Name Role Phone Star Cervantes DO Primary Care Provider [phone] Encounter Details Date Type Department Care Team (Late st Contact Info) Description 11/25/[address] [facility] Ear Nose and Throat [place] [address] [place] [address] [place] [phone] [place] Webb MD Social History Tobacco Use Types Packs/Day Years Used Date Smoking Tobacco: Never Smokeless Tobacco: Never Sex and Gender Information Value Date Recorded Sex Assigned at Not on file Legal Sex Male 3:53 PM PDT Gender Identity Not on file Sexual Orientation Not on file documented as of this encounter Functional Status documented as of this encounter Plan of Treatment Not on file documented as of this encounter Visit Diagnoses Not on filedocumented in this encounter Care Teams Cranberry Bog Supervisor Relationship Specialty Start Date End Date Star Cervantes DO [address] [place] [address], [address] [place], [place] [id number] PCP - General Rail Doweling Machine Operator 09/03/25 documented as of this encounter
--- OUTSIDE RECORDS SUMMARY | 2025-10-05 14:31 | XMS_ITS | Encounter Summary ---
Author Organization [facility] Address [address] [place] [address] Care Team Providers Care After School Caregiver Name Role Phone Star Cervantes DO Primary Care Provider [phone] Encounter Details Date Type Department Care Team (Late st Contact Info) Description 06/07/2025 Abstract [facility] Orthopedics and Sports Medicine [address] [phone] Jf Costa DO [address] [phone] Social History Tobacco Use Types [...] on filedocumented in this encounter Care Teams After School Caregiver Relationship Specialty Start Date End Date Star Cervantes DO [facility] [address] [place] [address], [address] [place], [place] [phone] PCP - General Passenger Locomotive Engineer 09/03/25 documented as of this encounter
--- OUTSIDE RECORDS SUMMARY | 2025-10-05 14:31 | XMS_ITS | Encounter Summary ---
Author Organization [facility] Address [address] [place] [address] Care Team Providers Care Diet Attendant Name Role Phone Star Cervantes DO Primary Care Provider [phone] Encounter Details Date Type Department Care Team (Late st Contact Info) Description 05/31/2025 Abstract [facility] Orthopedics and Sports Medicine [address] [phone] Jf Costa DO [address] [phone] Social History Tobacco Use Types [...] on filedocumented in this encounter Care Teams Diet Attendant Relationship Specialty Start Date End Date Star Cervantes DO [address] [place] [address], [address] [place], [place] [id number] PCP - General Industrial Relations Officer 09/03/25 documented as of this encounter
--- OUTSIDE RECORDS SUMMARY | 2025-10-05 14:31 | XMS_ITS | Encounter Summary ---
Author Organization [facility] Address [address] [place] [address] Care Team Providers Care Document Processing Specialist Name Role Phone Star Cervantes DO Primary Care Provider [phone] Reason for Visit * Reason Onset Date Comments Appointment 05/12/2023 Encounter Details Date Type Department Care Team (Late st Contact Info) Description 05/12/2023 Telephone [facility] [address] [place] [address] Pcp, None Selected Appointment Social History Tobacco Use Types Packs/Day Years [...] on file documented as of this encounter Miscellaneous Notes * Telephone Encounter - Susan Abrams - 05/12/2023 2:31 PM PDT Patient calling to follow up on a referral and schedule a TREADLE CUT OFF SAW OPERATOR appointment. Per frontline no referralreceived. Patient will call pcp documented in this encounter Plan of Treatment Not on file documented as of this encounter Visit Diagnoses Not on filedocumented in this encounter Care Teams Document Processing Specialist Relationship Specialty Start Date End Date Star Cervantes DO [address] [place] [address], [address] [place] [address] PCP - General Sports Management Professor 09/03/25 documented as of this encounter
--- OUTSIDE RECORDS SUMMARY | 2025-10-05 14:31 | XMS_ITS | Encounter Summary ---
Author Organization [facility] Address [address] [place] [address] Care Team Providers Care Director Volunteer Services Name Role Phone Star Cervantes DO Primary Care Provider [phone] Encounter Details Date Type Department Care Team (Late st Contact Info) Description 10/28/2023 Abstract [facility] [address] [place] [phone] Pj Hawley DO [address] [place] [address] Social History Tobacco Use Types Packs/Day Years [...] on filedocumented in this encounter Care Teams Director Volunteer Services Relationship Specialty Start Date End Date Star Cervantes DO [address] [place] [address] PCP - General Epic Cadence Specialists 09/03/25 documented as of this encounter
--- OUTSIDE RECORDS SUMMARY | 2025-10-05 14:31 | XMS_ITS | Encounter Summary ---
Author Organization [facility] Address [address] [place] [address] Care Team Providers Care Hydraulic Mechanic Name Role Phone Star Cervantes DO Primary Care Provider [phone] Encounter Details Date Type Department Care Team (Late st Contact Info) Description 02/19/2023 Abstract [facility] Ear Nose [facility] Throat [place] [address] [place] [address] [place] [phone] Twyla Chong, AuD [address] [place] [address] Social History Tobacco Use Types Packs/Day Years [...] on filedocumented in this encounter Care Teams Hydraulic Mechanic Relationship Specialty Start Date End Date Star Cervantes DO [address] [place] [address], [address] [place], [place] [phone] PCP - General Finance Mgr 09/03/25 documented as of this encounter
--- OUTSIDE RECORDS SUMMARY | 2025-10-05 14:31 | XMS_ITS | Encounter Summary ---
Author Organization [facility] Address [address] [place] [address] Care Team Providers Care Telephone Information Clerk Name Role Phone Star Cervantes DO Primary Care Provider [phone] Encounter Details Date Type Department Care Team (Late st Contact Info) Description 01/26/2021 Abstract [facility] Podiatry [place] [address] [place] [address] Diana Zhang, DPM [address] [phone] Social History Tobacco Use Types [...] on filedocumented in this encounter Care Teams Telephone Information Clerk Relationship Specialty Start Date End Date Star Cervantes DO [address] [place], [place] [id number] PCP - General Public Works Technician 09/03/25 documented as of this encounter
== END ==
LOC: RAD 09:38
PROVIDERS: PCP Family Medicine; Referring Provider Family Medicine; Visit Provider Family Medicine
DX: M85.852 Other specified disorders of bone density and structure, left thigh (principal)
CPT/HCPCS: 77080